=== PATIENT | male | born 1970 | race Caucasian/White ===

== ENCOUNTER 2018-10-25 07:31 | Day surgery (SDC) | payer BC ==
[2018-10-24 11:46] VITALS: BMI 24.3
[2018-10-25] MEDS ORDERED: PROPOFOL 20 ML ONE (08:15)
[2018-10-25 08:27] LABS: #Basophils 0.1 thou/uL (0.0-0.2); #Eosinphils 0.1 thou/uL (0.0-0.7); #Lymphocytes 1.1 thou/uL (1.20-3.40); #Monocytes 0.4 thou/uL (0.11-0.59); #Neutrophils 2.6 thou/uL (1.40-6.50); %Eosinophils 2.8 % (0.0-10.0); %Lymphocytes 25.1 % (21.0-51.0); %Monocytes 9.1 % (0.0-10.0); Hemoglobin 15.6 g/dL (14.0-18.0); Mean Corpuscular HGB CONC 33.4 g/dL (32.0-36.0); Mean Corpuscular Hemoglobin 31.3 pg (27.0-31.0); Mean Corpuscular Volume 93.6 fL (78.0-98.0); Mean Platelet Volume 7.8 fL (7.4-10.4); Platelet Count 277 thou/uL (130-400); RBC Distribution Width 11.5 % (11.5-14.5); White Blood Cell (WBC) Count 4.3 thou/uL (4.8-10.8)
[2018-10-25 08:44] LABS: Anion Gap 12 mmol/L (10-20); BUN (Urea Nitrogen) 17 mg/dL (8.9-20.6); Calc. Creatinine Clearance 108 mL/min (70-130); Calcium 9.7 mg/dL (7.8-10.44); Carbon Dioxide 24 mmol/L (22-29); Chloride 106 mmol/L (98-107); Estimated GFR-MDRD 88; Glucose 96 mg/dL (70-105); Potassium 4.3 mmol/L (3.5-5.1); Sodium 138 mmol/L (136-145)
[2018-10-25] MEDS ORDERED: Clindamycin/D5W 600 mg/50 ml Premix Bag ONE (09:05)
--- NOTE | 2018-10-25 20:28 | EKG ---
Test Reason : PREOP Blood Pressure : / mmHG Vent. Rate : 054 BPM Atrial Rate : 054 BPM P-R Int : 196 ms QRS Dur : 086 ms QT Int : 436 ms P-R-T Axes : 045 050 035 degrees QTc Int : 413 ms Sinus bradycardia Early repolarization Otherwise normal ECG No previous ECGs available Confirmed by DR. Dianne CHARLES MD ([id number]) on 10/25/2018 8:28:18 PM Referred By: IERO Confirmed By:DR. Dianne CHARLES MD
--- NOTE | 2018-10-26 13:59 | OP ---
DATE OF PROCEDURE: 10/25/2018 PREOPERATIVE DIAGNOSIS: Right knee medial meniscus tear. POSTOPERATIVE DIAGNOSES: 1. Right knee medial meniscus tear. 2. Evidence of what appears to be early gout in the right knee. PROCEDURES PERFORMED: Right knee arthroscopy with partial medial meniscectomy. CHERRY DIPPER: None. BLOOD LOSS: Minimal. COMPLICATIONS: None. ANESTHESIA: He did have a general anesthetic as well as a local knee block. DISPOSITION: He went to recovery room in stable condition. 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 He has failed nonoperative treatment at this time and wished to have his knee operated on. DESCRIPTION OF PROCEDURE: After all appropriate consent forms were explained and signed, he was taken to the operative room, and at this time, was given general anesthetic. Once the level of anesthesia was appropriate, a tourniquet was placed on the right thigh, and the leg was placed in arthroscopic leg macias. The limb was then prepped and draped in standard surgical fashion. Limb was exsanguinated and tourniquet was taken up to 300 mmHg. Inferolateral portal was then established. Scope was placed into the knee joint. A needle localization technique was then used to make a medial working portal. Diagnostic arthroscopy commenced in the notch. The ACL and PCL were probed and found to be intact. The medial compartment was evaluated. The femoral cartilage and tibial cartilage were in good condition. However, there were multiple areas with imbedded white crystals, which had the appearance of gout. There was a large posterior horn medial meniscus tear with a large flap component. This was taken down with a biter and a shaver to a stable base. All remaining meniscus was left alone. The lateral compartment was intact. However, again, did show some areas of crystal formation on the meniscus as well as on the femur. The gutters were swept through, no loose bodies were noted. The patellofemoral joint was in good condition as well. At this time, scope was removed. Knee was drained. Portals were closed with simple nylon stitch. A bulky sterile dressing was applied. Tourniquet was let down. Toes pinked up nicely. He was awakened and taken to recovery room in stable condition. All counts were correct. In addition, he did receive preoperative IV antibiotics. Job ID: [id number]
== END 2018-10-25 11:45 | disposition home or self-care (01) ==
LOC: SDC 07:31
PROVIDERS: ATTEND Orthopaedic Surgery
PROC: 3E0T3BZ Introduction of Anesthetic Agent into Peripheral Nerves and Plexi, Percutaneous Approach (ICD-10-PCS; principal; 2018-10-25)
PROC: 0SBC4ZZ Excision of Right Knee Joint, Percutaneous Endoscopic Approach (ICD-10-PCS; principal; 2018-10-25)
DX: S83.241A Other tear of medial meniscus, current injury, right knee, initial encounter (principal); G89.18 Other acute postprocedural pain; Z98.890 Other specified postprocedural states; Z88.0 Allergy status to penicillin; Z88.1 Allergy status to other antibiotic agents; X58.XXXA Exposure to other specified factors, initial encounter
CPT/HCPCS: 80048; 85025; 93005; 93010; J2704; J3490